=== PATIENT | female | born 2000 | race Two or more races ===

== ENCOUNTER 2023-03-31 13:20 | Emergency (ER) | payer BC, OTHER ==
[~2023-03-31] VITALS: Ht 154.9 cm; Wt 68.2 kg
[2023-03-31 14:13] VITALS: BP 122/64; PULSE 87; RESP 18; TEMP 98.4; O2SAT 98
== END 2023-03-31 14:32 | disposition home or self-care (01) ==
LOC: ER 13:20 → EDBD 13:20 → EDUNIT# 13:20 → ER 14:32
DX: T23.232A Burn of second degree of multiple left fingers (nail), not including thumb, initial encounter (principal); X17.XXXA Contact with hot engines, machinery and tools, initial encounter; Y93.A1 Activity, exercise machines primarily for cardiorespiratory conditioning; Y92.89 Other specified places as the place of occurrence of the external cause; Y99.8 Other external cause status
CPT/HCPCS: 16000; 73130